=== PATIENT | male | born 1950 | race Caucasian/White ===

== ENCOUNTER 2023-12-03 15:54 | Inpatient (IN) | payer BC, MEDICARE ==
[~2023-12-03] VITALS: Ht 162.6 cm; Wt 93.0 kg
[2023-12-03] MEDS ORDERED: APIX5TAB PO (16:08)
[2023-12-03] MEDS ORDERED: FLUT1BLS6 IH (16:08)
[2023-12-03] MEDS ORDERED: CHOL500062 PO (16:08)
[2023-12-03] MEDS ORDERED: ETHA25TA4 PO ×2 (16:08)
[2023-12-03] MEDS ORDERED: ALBU8HFA4 INH (16:08)
[2023-12-03] MEDS ORDERED: DAPA10TA PO (16:08)
[2023-12-03] MEDS ORDERED: CETI10CA19 PO (16:08)
[2023-12-03 16:38] LABS: LYMPHOCYTES # (AUTO) 0.7 K/uL (0.8-4.8); MONOCYTES # (AUTO) 0.1 K/uL (0.1-1.30)
[2023-12-03 16:49] LABS: BASOPHILS % (AUTO) 0.3 % (0.0-2.0); CALCIUM 9.1 mg/dL (8.5-10.1); CARBON DIOXIDE 27 mmol/L (21-32); CHLORIDE 102 mmol/L (98-107); CREATININE 0.9 mg/dL (0.6-1.3); GLUCOSE 96 mg/dL (74-106); NEUTROPHILS # (AUTO) 8.1 K/uL (1.8-8.9); POTASSIUM 4.2 mmol/L (3.5-5.1); SODIUM SERUM 140 mmol/L (136-145); UREA NITROGEN, BLOOD 17 mg/dL (7-18)
[2023-12-03 16:53] LABS: EOSINOPHILS % (AUTO) 0.3 % (0.0-7.0); HEMATOCRIT 53.6 % (36.7-47.1); HEMOGLOBIN 17.9 g/dL (12.5-16.3); LYMPHOCYTES % (AUTO) 7.5 % (20.5-51.5); MEAN CORPUSCULAR HGB CONC 33 g/dL (32.5-36.3); MEAN CORPUSCULAR VOLUME 89.9 fL (73.0-96.2); MONOCYTES % (AUTO) 1.4 % (0.0-11.0); NEUTROPHILS % (AUTO) 90.5 % (38.5-71.5); PLATELET COUNT (AUTO) 150 K/uL (152-348); RED BLOOD CELL COUNT(AUTO) 5.96 MIL/uL (4.06-5.63)
[2023-12-03 16:55] LABS: DIFFERENTIAL COMMENT 1
[2023-12-03 17:03] LABS: ALANINE AMINOTRANSFERASE 26 U/L (16-63); ALBUMIN 3.9 g/dL (3.4-5.0); ALKALINE PHOSPHATASE 93 U/L (50-136); ASPARTATE AMINOTRANSFERASE 21 U/L (15-37); BILIRUBIN,DIRECT 0.3 mg/dL (0.0-0.2); NT-PRO BNP 182 pg/mL (0-125); TOTAL PROTEIN, SERUM 7.1 g/dL (6.4-8.2)
[2023-12-03] MEDS ORDERED: MAGNESIUM HYDROXIDE 30 ML LIQUID UDC PO PRN (21:15)
[2023-12-03] MEDS ORDERED: ALBUTEROL SULFATE 2.5 MG/ 0.5 ML NEBU NEB PRN (21:15)
[2023-12-03] MEDS ORDERED: ONDANSETRON 4 MG/2 ML VIAL IV PRN (21:15)
[2023-12-03] MEDS ORDERED: IV 1/2NS 1000 ML 1,000 ML IV PRN (21:15)
[2023-12-03] MEDS ORDERED: ACETAMINOPHEN 325 MG TABLET PO PRN (21:15)
[2023-12-03] MEDS ORDERED: IPRATROPIUM BROMIDE 0.5 MG/2.5 ML NEBU NEB PRN (21:15)
[2023-12-03 22:20] VITALS: O2SAT 97
[2023-12-03 23:00] VITALS: BP 161/91; TEMP 97.6; O2SAT 96
[2023-12-03] MEDS ORDERED: hydrALAZINE HCL 20 MG/1 ML VIAL IV PRN (23:15)
[2023-12-03 23:30] VITALS: BP 136/90; O2SAT 96
[2023-12-03] MEDS: MORPHINE SULFATE 2 MG/1 ML DISP.SYRIN IV PRN (23:34)
[2023-12-04] VITALS (17 sets, daily range): BP systolic 111–143; BP diastolic 72–92; TEMP 97.5–99.2; O2SAT 91–98
[2023-12-04 05:45] LABS: BASOPHILS % (AUTO) 0.4 % (0.0-2.0); DIFFERENTIAL COMMENT 1; EOSINOPHILS % (AUTO) 0.3 % (0.0-7.0); HEMATOCRIT 50.5 % (36.7-47.1); HEMOGLOBIN 16.7 g/dL (12.5-16.3); LYMPHOCYTES # (AUTO) 0.7 K/uL (0.8-4.8); LYMPHOCYTES % (AUTO) 6.3 % (20.5-51.5); MEAN CORPUSCULAR HEMOGLOBIN 29.6 uug (23.8-33.4); MEAN CORPUSCULAR HGB CONC 33 g/dL (32.5-36.3); MEAN CORPUSCULAR VOLUME 89.8 fL (73.0-96.2); MONOCYTES # (AUTO) 0.8 K/uL (0.1-1.30); MONOCYTES % (AUTO) 6.9 % (0.0-11.0); NEUTROPHILS # (AUTO) 9.7 K/uL (1.8-8.9); NEUTROPHILS % (AUTO) 86.1 % (38.5-71.5); PLATELET COUNT (AUTO) 224 K/uL (152-348); RED BLOOD CELL COUNT(AUTO) 5.63 MIL/uL (4.06-5.63); RED CELL DISTRIBUTION WIDTH 15.7 % (12.1-16.2); WHITE BLOOD COUNT (AUTO) 11.2 K/uL (3.6-10.2)
[2023-12-04 05:55] LABS: CALCIUM 8.8 mg/dL (8.5-10.1); CREATININE 0.9 mg/dL (0.6-1.3); MAGNESIUM 2.2 mg/dL (1.8-2.4); PHOSPHOROUS 4.5 mg/dL (2.5-4.9); POTASSIUM 4.5 mmol/L (3.5-5.1)
[2023-12-04] MEDS: PANTOPRAZOLE SODIUM 40 MG TABLET.DR PO SCH (06:52)
[2023-12-04] MEDS: CHOLECALCIFEROL 1,000 UNIT TABLET PO SCH (08:58)
[2023-12-04] MEDS: APIXABAN 5 MG TABLET PO ONE (08:59)
[2023-12-04] MEDS: DAPAGLIFLOZIN PROPANEDIOL 5 MG TABLET PO SCH (08:59)
[2023-12-04] MEDS: CETIRIZINE HCL 10 MG TABLET PO SCH (09:00)
[2023-12-04] MEDS: HYDROCODONE/APAP 5-325MG TABLET PO ONE (09:08)
== END 2023-12-04 09:52 | disposition home or self-care (01) | DRG 917 ==
LOC: ER 15:58 → CCU 22:07
PROVIDERS: ADMIT Nurse Practitioner Family; ATTEND Nurse Practitioner Family
PROC: 5A09457 Assistance with Respiratory Ventilation, 24-96 Consecutive Hours, Continuous Positive Airway Pressure (ICD-10-PCS; principal; 2023-12-03)
DX: T88.59XA Other complications of anesthesia, initial encounter (principal); J96.01 Acute respiratory failure with hypoxia; J98.11 Atelectasis; Y92.530 Ambulatory surgery center as the place of occurrence of the external cause; Y83.8 Other surgical procedures as the cause of abnormal reaction of the patient, or of later complication, without mention of misadventure at the time of the procedure; Y70.8 Miscellaneous anesthesiology devices associated with adverse incidents, not elsewhere classified; J43.9 Emphysema, unspecified; I48.0 Paroxysmal atrial fibrillation; E66.9 Obesity, unspecified; Z68.35 Body mass index [BMI] 35.0-35.9, adult; I11.0 Hypertensive heart disease with heart failure; I50.9 Heart failure, unspecified; S52.531D Colles' fracture of right radius, subsequent encounter for closed fracture with routine healing; X58.XXXD Exposure to other specified factors, subsequent encounter; Z87.891 Personal history of nicotine dependence; E11.9 Type 2 diabetes mellitus without complications; Z79.899 Other long term (current) drug therapy; Z79.01 Long term (current) use of anticoagulants; I71.40 Abdominal aortic aneurysm, without rupture, unspecified; G56.81 Other specified mononeuropathies of right upper limb
CPT/HCPCS: 36415; 36600; 71045; 83735; 84100; 84484; 85025; 85730; 86850; 86900; 86901; 93005; 94660; 94760; A4606; G0378; J2270